=== PATIENT | female | born 1945 | race African-American/Black ===

== ENCOUNTER 2020-12-01 11:52 | Inpatient (IN) | payer MEDICARE ==
[~2020-12-01] VITALS: Ht 158.8 cm; Wt 70.8 kg
[2020-12-01] MEDS ORDERED: PANTOPRAZOLE SODIUM 40 MG/VIAL IV STA (12:06)
[2020-12-01] MEDS ORDERED: SODIUM CHLORIDE 0.9% 1,000 ML IV ONE ×2 (12:15→13:15)
[2020-12-01 14:18] LABS: HEMATOCRIT. 35.7 % (36.0-48.0); HEMOGLOBIN. 11.6 g/dL (12.0-16.0); MEAN CORPUSCULAR HEMOGLOBIN 28.6 pg (28.0-32.0); MEAN CORPUSCULAR VOLUME 88.1 fL (81.0-99.0); MEAN PLATELET VOLUME 8.2 fl (7.4-10.4); PLATELET 134 x1000/uL (130-400); RED BLOOD CELL COUNT 4.05 mill/uL (4.2-5.4); RED CELL DISTRIBUTION WIDTH 14.9 % (11.6-14.6)
[2020-12-01 14:24] LABS: INR 1.2; PROTHROMBIN TIME 12.6 sec (9.6-11.0)
[2020-12-01 14:25] LABS: CHLORIDE 99 mEq/L (98-107)
[2020-12-01 14:44] LABS: PLATELET ESTIMATE NORMAL
[2020-12-01] MEDS ORDERED: POTASSIUM CHLORIDE 20MEQ TABLET SR PO NR (16:45)
[2020-12-01] MEDS ORDERED: ACETAMINOPHEN 325MG TABLET PO PRN ×2 (17:45)
[2020-12-01] MEDS ORDERED: CLONIDINE 0.1MG TABLET PO PRN (17:45)
[2020-12-01] MEDS ORDERED: ZOLPIDEM TARTRATE 5MG TABLET PO PRN (17:45)
[2020-12-01] MEDS ORDERED: MAGNESIUM/ALUMINUM HYDROXIDE/SIMETHICONE 30ML UDC PO PRN (17:45)
[2020-12-01] MEDS ORDERED: GUAIFENESIN 200MG/10ML SUGAR FREE UDC PO PRN (17:45)
[2020-12-01] MEDS ORDERED: TRAMADOL 50MG TABLET PO PRN (17:45)
[2020-12-01] MEDS ORDERED: IPRATROPIUM/ALBUTEROL 0.5-3(2.5)MG/3ML NEB NEB PRN (17:45)
[2020-12-01] MEDS ORDERED: ONDANSETRON HCL 4MG/2ML INJ IV PRN (17:45)
[2020-12-01] MEDS ORDERED: DEXTROSE 50% WATER 50ML SYRINGE IV PRN (17:45)
[2020-12-01] MEDS ORDERED: DOCUSATE SODIUM 100MG CAPSULE PO PRN (17:45)
[2020-12-01] MEDS: INSULIN LISPRO 100 UNITS/ML SUBCUT SCH ×2 (18:45→23:33)
[2020-12-01 19:31] LABS: T4 FREE 1.39 ng/dL (0.76-1.46)
[2020-12-01 19:38] LABS: FOLIC ACID (FOLATE) SERUM 1.5 ng/mL (>5.38)
[2020-12-01] MEDS ORDERED: POTASSIUM PHOS,M-BASIC-D-BASIC 30 MMOL in SODIUM CHLORIDE 0.9% 500 ML IV NR (21:00)
[2020-12-01 23:15] LABS: CREATINE KINASE MB FRACTION 3.5 ng/mL (0.5-3.6)
[2020-12-01] MEDS: PANTOPRAZOLE SODIUM 40 MG/VIAL IV SCH (23:33)
[2020-12-01] MEDS: BLOOD SUGAR DIAGNOSTIC STRIP TEST SCH (23:34)
[2020-12-02 02:56] VITALS: BP 135/61
[2020-12-02 04:00] VITALS: BP 104/49
[2020-12-02] MEDS: BLOOD SUGAR DIAGNOSTIC STRIP TEST SCH ×4 (06:45→21:13)
[2020-12-02] MEDS: INSULIN LISPRO 100 UNITS/ML SUBCUT SCH ×4 (07:15→21:00)
[2020-12-02 08:00] VITALS: BP 129/60
[2020-12-02] MEDS ORDERED: INFLUENZA VACCINE 05/PF 0.5 ML VIAL IM ONE (10:00)
[2020-12-02] MEDS: PANTOPRAZOLE SODIUM 40 MG/VIAL IV SCH ×2 (10:08→21:17)
[2020-12-02] MEDS ORDERED: FOLIC ACID 1 MG in SODIUM CHLORIDE 0.9% 500 ML IV ONE (10:15)
[2020-12-02 12:00] VITALS: BP 118/65
[2020-12-02 12:42] LABS: CLARITY URINE TURBID (CLEAR); COLOR URINE YELLOW (YELLOW); KETONES URINE 1+ (NEGATIVE); LEUKOCYTE ESTERASE URINE 2+ (NEGATIVE); NITRITE URINE NEGATIVE (NEGATIVE); OCCULT BLOOD URINE 2+ (NEGATIVE); PH URINE >=9.0 (4.5-8.0); PROTEIN URINE 2+ (NEGATIVE); SPECIFIC GRAVITY URINE 1.018 (1.005-1.030)
[2020-12-02 16:00] VITALS: BP 140/68
[2020-12-02 16:23] LABS: HEMATOCRIT 29.3 % (36.0-48.0); HEMOGLOBIN 9.7 g/dL (12.0-16.0); MEAN CORPUSCULAR HEMOGLOBIN 29.3 pg (28.0-32.0); MEAN CORPUSCULAR VOLUME 88.9 fL (81.0-99.0); PLATELET 108 x1000/uL (130-400); RED CELL DISTRIBUTION WIDTH 15.4 % (11.6-14.6)
[2020-12-02 16:34] LABS: INR 1.1; PROTHROMBIN TIME 12.2 sec (9.6-11.0)
[2020-12-02 16:47] LABS: CHLORIDE 106 mEq/L (98-107)
[2020-12-02 16:53] LABS: PHOSPHORUS 2.7 mg/dL (2.5-4.9)
[2020-12-02 16:58] LABS: CREATINE KINASE MB FRACTION 2.7 ng/mL (0.5-3.6)
[2020-12-02 17:00] LABS: CREATINE KINASE 64 IU/L (26-192)
[2020-12-02] MEDS ORDERED: MIDAZOLAM HCL 5 MG/5 ML VIAL IV PRN (17:35)
[2020-12-02] MEDS ORDERED: MIDAZOLAM HCL 5 MG/5 ML VIAL ONE (17:36)
[2020-12-02] MEDS ORDERED: FENTANYL CITRATE/PF 50MCG/ML 2ML VIAL ONE (17:37)
[2020-12-02 20:00] VITALS: BP 121/65
[2020-12-03] VITALS: BP 122/63
[2020-12-03 04:00] VITALS: BP 129/82
[2020-12-03] MEDS: INSULIN LISPRO 100 UNITS/ML SUBCUT SCH ×4 (05:16→21:00)
[2020-12-03] MEDS: BLOOD SUGAR DIAGNOSTIC STRIP TEST SCH ×4 (05:16→21:42)
[2020-12-03 08:00] VITALS: BP 132/63
[2020-12-03 09:52] LABS: HEMATOCRIT. 28.5 % (36.0-48.0); HEMOGLOBIN. 9.4 g/dL (12.0-16.0); MEAN CORPUSCULAR HEMOGLOBIN 29.4 pg (28.0-32.0); PLATELET 107 x1000/uL (130-400); RED CELL DISTRIBUTION WIDTH 15.7 % (11.6-14.6)
[2020-12-03] MEDS: FOLIC ACID 1MG TABLET PO SCH (10:06)
[2020-12-03] MEDS: PANTOPRAZOLE SODIUM 40 MG/VIAL IV SCH ×2 (10:06→21:42)
[2020-12-03 10:18] LABS: CHLORIDE 104 mEq/L (98-107)
[2020-12-03 10:27] LABS: PHOSPHORUS 2.1 mg/dL (2.5-4.9)
[2020-12-03] MEDS ORDERED: POTASSIUM CHLORIDE 20MEQ TABLET SR PO NR (11:00)
[2020-12-03] MEDS ORDERED: POTASSIUM CHLORIDE INJ 40 MEQ in DEXT 5% WATER 250 ML IV NR (11:00)
[2020-12-03] MEDS ORDERED: MAGNESIUM 4 G PREMIX 100 ML IV NR (11:45)
[2020-12-03 12:00] VITALS: BP 116/67
[2020-12-03] MEDS: SUCRALFATE 1G TABLET PO SCH ×3 (12:31→21:42)
[2020-12-03] MEDS: MEGESTROL ACETATE 400 MG/10 ML UDC PO SCH (12:31)
[2020-12-03] MEDS ORDERED: POTASSIUM PHOS,M-BASIC-D-BASIC 30 MMOL in SODIUM CHLORIDE 0.9% 500 ML IV ONE (14:00)
[2020-12-03 16:00] VITALS: BP 115/63
[2020-12-03 17:56] LABS: PLATELET ESTIMATE DECREASED
[2020-12-03 20:00] VITALS: BP 116/54
[2020-12-04] VITALS: BP 126/59
[2020-12-04 04:00] VITALS: BP 136/54
[2020-12-04] MEDS: INSULIN LISPRO 100 UNITS/ML SUBCUT SCH (06:08)
[2020-12-04] MEDS: BLOOD SUGAR DIAGNOSTIC STRIP TEST SCH (06:08)
[2020-12-04] MEDS: SUCRALFATE 1G TABLET PO SCH (06:09)
[2020-12-04 08:00] VITALS: BP 118/48
[2020-12-04] MEDS: MEGESTROL ACETATE 400 MG/10 ML UDC PO SCH (09:39)
[2020-12-04] MEDS: FOLIC ACID 1MG TABLET PO SCH (09:39)
[2020-12-04] MEDS: PANTOPRAZOLE SODIUM 40 MG/VIAL IV SCH (09:39)
[2020-12-04 09:58] LABS: BASOPHILS % 0.3 % (0.0-2.0); HEMATOCRIT. 30.3 % (36.0-48.0); MEAN CORPUSCULAR HEMOGLOBIN 29.5 pg (28.0-32.0); MEAN CORPUSCULAR VOLUME 89.6 fL (81.0-99.0); MEAN PLATELET VOLUME 7.9 fl (7.4-10.4); NEUTROPHILS % 70.7 % (40.0-76.0); PLATELET 104 x1000/uL (130-400); RED BLOOD CELL COUNT 3.38 mill/uL (4.2-5.4); RED CELL DISTRIBUTION WIDTH 15.4 % (11.6-14.6)
[2020-12-04 10:09] LABS: CHLORIDE 106 mEq/L (98-107)
[2020-12-04 10:14] LABS: PHOSPHORUS 2.5 mg/dL (2.5-4.9)
[2020-12-04 12:00] VITALS: BP 123/49
[2020-12-04 12:38] VITALS: BP 123/49
== END 2020-12-04 14:10 | disposition home health service (06) | DRG 378 ==
LOC: ER 12:04 → MICUSO 15:22 → SUPCPDRO 17:38 → 5WST 22:44
PROVIDERS: ADMIT Internal Medicine; ATTEND Internal Medicine
PROC: 0DB78ZX Excision of Stomach, Pylorus, Via Natural or Artificial Opening Endoscopic, Diagnostic (ICD-10-PCS; principal; 2020-12-02)
PROC: 0DB38ZX Excision of Lower Esophagus, Via Natural or Artificial Opening Endoscopic, Diagnostic (ICD-10-PCS; 2020-12-02)
DX: K25.4 Chronic or unspecified gastric ulcer with hemorrhage (principal); D62 Acute posthemorrhagic anemia; E44.0 Moderate protein-calorie malnutrition; E87.1 Hypo-osmolality and hyponatremia; E87.2 Acidosis; K26.4 Chronic or unspecified duodenal ulcer with hemorrhage; D52.9 Folate deficiency anemia, unspecified; E83.39 Other disorders of phosphorus metabolism; E83.51 Hypocalcemia; E87.6 Hypokalemia; I10 Essential (primary) hypertension; C50.911 Malignant neoplasm of unspecified site of right female breast; Z20.822 Contact with and (suspected) exposure to COVID-19; K22.70 Barrett's esophagus without dysplasia; K44.9 Diaphragmatic hernia without obstruction or gangrene; E83.42 Hypomagnesemia; T45.1X5A Adverse effect of antineoplastic and immunosuppressive drugs, initial encounter; Y92.89 Other specified places as the place of occurrence of the external cause; Z90.11 Acquired absence of right breast and nipple; Z79.4 Long term (current) use of insulin; Z68.28 Body mass index [BMI] 28.0-28.9, adult; E11.65 Type 2 diabetes mellitus with hyperglycemia; R79.89 Other specified abnormal findings of blood chemistry
CPT/HCPCS: 36415; 71045; 80048; 80053; 81003; 82550; 82553; 82607; 82746; 82962; 83036; 83540; 83550; 83605; 83615; 83735; 84100; 84439; 84443; 84484; 84550; 85025; 85027; 86850; 86900; 86920; 87426; 88305; 88312; 88313; 90686; 93005; 93970; 97162; 99291; C1893; C9113; J2250; J3010; J3475; J3480; J3490; J7030; J7040; J7060